=== PATIENT | male | born 1945 | race African-American/Black ===

== ENCOUNTER 2017-07-23 12:18 | Inpatient (IN) | payer MEDICARE, OTHER ==
[~2017-07-23] VITALS: Ht 182.9 cm; Wt 60.0 kg
[2017-07-23 12:50] VITALS: BP 155/87
[2017-07-23 13:05] LABS: BASO # 0.1 x10^3/uL (0.0-0.2); BASO % 1 % (0-3); EOS % 1 % (0-3); HEMATOCRIT 30.1 % (39.0-53.0); HEMOGLOBIN 10.3 g/dL (13.0-17.5); LYMPH # 1.2 x10^3/uL (1.0-4.8); LYMPH % 25 % (24-48); MEAN CORPUSCULAR HEMOGLOBIN 32 pg (25-35); MEAN CORPUSCULAR HGB CONC 34 g/dL (31-37); MEAN CORPUSCULAR VOLUME 94 fL (79-100); MONO # 0.4 x10^3/uL (0.0-1.1); MONO % 8 % (0-9); NEUT # 3.1 x10^3uL (1.8-7.7); NEUT % 65 % (31-73); PLATELET COUNT 226 x10^3/uL (140-400); RED BLOOD COUNT 3.21 x10^6/uL (4.30-5.70); RED CELL DISTRIBUTION WIDTH 15.5 % (11.5-14.5); WHITE BLOOD COUNT 4.8 x10^3/uL (4.0-11.0)
[2017-07-23 13:18] LABS: ALBUMIN/GLOBULIN RATIO 1.1 (1.0-1.7); CALCIUM 9.4 mg/dL (8.5-10.1); CREATININE 1.5 mg/dL (0.7-1.3); GFR 56.1; POTASSIUM 4.2 mmol/L (3.5-5.1); TOTAL BILIRUBIN 0.6 mg/dL (0.2-1.0); TOTAL PROTEIN 7.7 g/dL (6.4-8.2)
[2017-07-23] MEDS ORDERED: IBUP800T19 PO (13:40)
[2017-07-23] MEDS: PANTOPRAZOLE IV 40 MG VIAL. IVP SCH (14:03)
[2017-07-23] MEDS: IV NORMAL SALINE 1,000ML 1,000 ML IV SCH ×2 (14:04→22:30)
--- NOTE | 2017-07-23 14:08 | RAD ---
Examination: CT of the abdomen pelvis without contrast HISTORY: History of rectal bleeding COMPARISON: None available Technique: Axial CT images of the abdomen pelvis were performed with oral contrast. Coronal and sagittal reformats are performed Exposure: One or more of the following individualized dose reduction techniques were utilized for this examination: 1. Automated exposure control 2. Adjustment of the mA and/or kV according to patient size 3. Use of iterative reconstruction technique FINDINGS: Emphysematous changes identified in the bibasilar lungs. No evidence of free air identified in the abdomen. The visualized noncontrasted liver, adrenals grossly appears unremarkable. There is a cystic structure identified in the spleen measuring 1.6 cm. The stomach is mildly distended with contrast. The visualized pancreas grossly appears unremarkable. The gallbladder is mildly distended. The small bowel is nondilated. Visualized appendix grossly appears unremarkable. Feces and gas noted in the colon. Evaluation of the solid organs is limited lack of IV contrast. No evidence of intrarenal collecting system calculi or hydronephrosis. The urinary bladder is moderately distended. There is mild diffuse thickening of the wall of the urinary bladder with indentation septated appearance of the urinary bladder inferiorly, best visualized on series 5 image #53. Moderate aortic atherosclerosis. Moderate degenerative changes identified at L4-L5 vertebral level. Impression: 1. Mild diffuse thickening of the urinary bladder wall with indentation septated appearance of the urinary bladder inferiorly, best visualized on series 5 image #53. Could be cystitis or underlying mucosal pathology such as neoplasm. Cystoscopic evaluation is recommended. 2. A 1.6 cm hypodensity identified in the spleen, nonspecific. Electronically signed by: Kartik Vernon MD (07/23/2017 2:05 PM) [id number]
--- NOTE | 2017-07-23 16:23 | EKG ---
[address] [address] Test Date: 2017-07-23 Test Time: 16:18:43 Pat Name: MELQUIADES WILL Department: Room: 122 A Gender: M Spacer Type Bar And Segment: : 1945 Requested By: JOAN MCCARTY Order Number: [id number] Reading MD: Gregory Torrez MD Measurements Intervals [place] Rate: 64 P: 70 ME: 194 QRS: 70 QRSD: 72 T: 76 QT: 420 QTc: 438 Interpretive Statements SINUS RHYTHM Electronically Signed On 08-06-2017 11:28:43 CDT by Gregory Torrez MD
[2017-07-23 19:09] VITALS: BP 107/63
[2017-07-23 22:07] LABS: BILIRUBIN,URINE NEG (NEG); CLARITY,URINE HAZY; COLOR,URINE YELLOW; GLUCOSE,URINE NEG (NEG); NITRITE,URINE NEG (NEG); UROBILINOGEN,URINE 0.2 mg/dL (0.2 mg/dL)
[2017-07-23 22:08] LABS: BACTERIA,URINE 0 /HPF (0-FEW); SQUAMOUS EPITHELIAL CELL,UR MANY /LPF
[2017-07-23 22:09] VITALS: BP 112/66
[2017-07-23 22:09] LABS: HYALINE CASTS, URINE FEW /HPF
[2017-07-24 05:17] VITALS: BP 129/61
[2017-07-24 06:37] LABS: BASO % 1 % (0-3); EOS % 1 % (0-3); HEMATOCRIT 25.2 % (39.0-53.0); HEMOGLOBIN 8.9 g/dL (13.0-17.5); LYMPH % 31 % (24-48); MEAN CORPUSCULAR HEMOGLOBIN 33 pg (25-35); MEAN CORPUSCULAR HGB CONC 35 g/dL (31-37); MEAN CORPUSCULAR VOLUME 94 fL (79-100); MONO # 0.3 x10^3/uL (0.0-1.1); MONO % 9 % (0-9); NEUT # 1.8 x10^3uL (1.8-7.7); NEUT % 58 % (31-73); PLATELET COUNT 177 x10^3/uL (140-400); RED BLOOD COUNT 2.69 x10^6/uL (4.30-5.70); RED CELL DISTRIBUTION WIDTH 15.4 % (11.5-14.5); WHITE BLOOD COUNT 3.2 x10^3/uL (4.0-11.0)
[2017-07-24 06:52] LABS: CALCIUM 8.2 mg/dL (8.5-10.1); CREATININE 1.4 mg/dL (0.7-1.3); GFR 60.8
[2017-07-24] MEDS: PANTOPRAZOLE IV 40 MG VIAL. IVP SCH (07:22)
[2017-07-24] MEDS: IV NORMAL SALINE 1,000ML 1,000 ML IV SCH ×2 (07:29→18:34)
[2017-07-24 09:12] LABS: FECAL OB PT POSITIVE (NEG)
[2017-07-24 11:19] VITALS: BP 135/68
[2017-07-24] MEDS ORDERED: levoFLOXacin 500 MG TABLET PO ONE (13:30)
[2017-07-24 15:41] VITALS: BP_SYST 114; BP_SYST 125; BP_DIAS 61; BP_DIAS 64
[2017-07-24] MEDS: SUCRALFATE 1 GM TABLET. PO SCH ×2 (16:55→20:45)
[2017-07-24 19:17] VITALS: BP 112/61
[2017-07-24 23:24] VITALS: BP 125/65
--- NOTE | 2017-07-25 00:10 | PN ---
DATE: SUBJECTIVE: A 71-year-old male who came in with acute GI bleed. He was admitted from the office because of his GI bleed, general orthostasis and low blood pressure. He is doing a little bit better today. The patient was started on some Flomax, might have cystitis. Urine culture is pending. The patient's hemoglobin has dropped down from 10 down to 8.9, although with fluids, his blood pressure is back up to 125/61 and pulse of 63, afebrile. OBJECTIVE: The patient is alert and oriented. Lungs Clear. CV exam stable. Abdomen is soft, diffuse tenderness noted primarily in the epigastric area. The patient had been on some nonsteroidals, probably related to his problem of GI bleed. Otherwise, he is feeling much better. Hemoglobin as stated above. PLAN: We will continue on IV Protonix, Carafate, monitor, and probably get an EGD as an outpatient. JOAN MCCARTY MD DR: GIORGI/sarkis JOB#: [id number] / [id number]
[2017-07-25] MEDS: IV NORMAL SALINE 1,000ML 1,000 ML IV SCH (04:40)
[2017-07-25 06:22] LABS: BASO % 1 % (0-3); EOS % 1 % (0-3); HEMATOCRIT 25.7 % (39.0-53.0); HEMOGLOBIN 8.9 g/dL (13.0-17.5); LYMPH # 0.9 x10^3/uL (1.0-4.8); LYMPH % 30 % (24-48); MEAN CORPUSCULAR HEMOGLOBIN 32 pg (25-35); MEAN CORPUSCULAR HGB CONC 35 g/dL (31-37); MEAN CORPUSCULAR VOLUME 94 fL (79-100); MONO # 0.3 x10^3/uL (0.0-1.1); MONO % 10 % (0-9); NEUT # 1.8 x10^3uL (1.8-7.7); NEUT % 59 % (31-73); PLATELET COUNT 185 x10^3/uL (140-400); RED BLOOD COUNT 2.73 x10^6/uL (4.30-5.70); RED CELL DISTRIBUTION WIDTH 15.3 % (11.5-14.5); WHITE BLOOD COUNT 3.1 x10^3/uL (4.0-11.0)
[2017-07-25 06:25] LABS: CALCIUM 8.4 mg/dL (8.5-10.1); CREATININE 1.4 mg/dL (0.7-1.3); GFR 60.8
[2017-07-25 07:00] VITALS: BP 135/72
[2017-07-25] MEDS: SUCRALFATE 1 GM TABLET. PO SCH ×2 (07:36→11:48)
[2017-07-25] MEDS: PANTOPRAZOLE IV 40 MG VIAL. IVP SCH (07:37)
[2017-07-25] MEDS ORDERED: PANT40TA3 PO (11:06)
[2017-07-25] MEDS ORDERED: TRAM50TA PO (11:06)
[2017-07-25] MEDS ORDERED: SUCR1TAB35 PO (11:06)
[2017-07-25] MEDS ORDERED: FERR325T14 PO (11:08)
--- NOTE | 2017-08-08 09:54 | DS ---
DATE OF DISCHARGE: 07/25/2017 HOSPITAL COURSE: The patient was admitted from the office with an acute GI bleed, general orthostasis, low blood pressure. The patient was taken off some of his medication and placed on Protonix and Carafate. He made excellent progress during the rest of his hospitalization. Hemoglobin stabilized at 8.9. The patient had no complications from this hospitalization. The patient was discharged home. Follow up as an outpatient. IMPRESSION: Acute gastrointestinal bleed, bladder wall thickening, iron-deficiency anemia secondary to bleed, CKD 2. DISCHARGE PLAN: The patient will be discharged home on a regular diet, decreased activity, see MRAD and follow up accordingly. He will be set up with a GI doctor for further evaluation. JOAN MCCARTY MD DR: GIORGI/sarkis JOB#: [id number] / [id number]
== END 2017-07-25 12:30 | disposition home or self-care (01) | DRG 378 ==
LOC: 1 SOUTH 12:19
PROVIDERS: ADMIT Family Medicine; ATTEND Family Medicine
DX: K92.2 Gastrointestinal hemorrhage, unspecified (principal); E44.1 Mild protein-calorie malnutrition; R64 Cachexia; Z68.1 Body mass index [BMI] 19.9 or less, adult; I95.9 Hypotension, unspecified; N30.90 Cystitis, unspecified without hematuria
CPT/HCPCS: 36415; 74177; 80048; 80053; 81001; 82150; 82274; 82947; 83540; 83550; 83690; 85025; 87086; 93005; 99406; C9113; J7030

== ENCOUNTER → 2017-11-02 | Outpatient (CLI) | payer MEDICARE, OTHER ==
[~2017-11-02] MED LIST: FERR325T14 PO; IBUP800T19 PO; PANT40TA3 PO; SUCR1TAB35 PO; TRAM50TA PO
--- NOTE | 2017-11-02 15:45 | RAD ---
Examination: CT pelvis without contrast HISTORY: History of urinary tract infection, prostate irritation Comparison: 07/23/2017 TECHNIQUE: Axial CT images of the pelvis were performed without contrast. Coronal and sagittal deformities are performed Exposure: One or more of the following individualized dose reduction techniques were utilized for this examination: 1. Automated exposure control 2. Adjustment of the mA and/or kV according to patient size 3. Use of iterative reconstruction technique FINDINGS: Feces and gas noted in the colon. The urinary bladder wall is moderately thickened diffusely with the mild distention. The prostate appears mildly enlarged. Small amount of fluid identified about the prostate extending inferiorly. Moderate degenerative changes lower lumbar spine. IMPRESSION: 1. Diffuse moderate thickened appearance the urinary bladder wall again identified. Cystitis is a possibility. Underlying mucosal pathology such as neoplasm is not completely excluded. Recommend cystoscopic evaluation. The prostate is mildly enlarged small amount of fluid extending inferiorly. Examination is limited. If prostate pathology is suspected, MRI prostate may be considered for further evaluation. Electronically signed by: Kartik Vernon MD (11/02/2017 3:42 PM) [id number]
== END | disposition home or self-care (01) ==
LOC: CT 10:46
PROVIDERS: ATTEND Family Medicine
DX: N32.89 Other specified disorders of bladder (principal); Z87.440 Personal history of urinary (tract) infections
CPT/HCPCS: 72192

== ENCOUNTER 2018-09-22 13:48 | Emergency (ER) | payer MEDICARE, OTHER ==
[~2018-09-22] VITALS: Ht 182.9 cm; Wt 67.6 kg
[2018-09-22 14:05] VITALS: BP 157/84
[2018-09-22] MEDS ORDERED: HYDR25TA PO (14:21)
[2018-09-22] MEDS ORDERED: PRED50TA PO (14:21)
[2018-09-22] MEDS ORDERED: FAMO-63 PO (14:21)
--- NOTE | 2018-09-22 14:21 | PHYS DOC ---
Past History Past Medical History: Anemia, Hypertension, Other Additional Past Medical Histor: dysfunctional bladder, requiring self- catheterization Smoking: Cigarettes, Less than 1pk/day Alcohol Use: Occasionally Drug Use: None Adult General Chief Complaint Chief Complaint: SKIN PROBLEM HPI HPI Patient is a 72-year-old male presents with diffuse upper body itchy rash that has been present for the past 2-3 weeks. He saw his primary care physician for this last week was given a shot which worked for 2-3 days but the rash came back along with the itching. No [id number] or home medicine has been taken. No difficulty breathing. No bruising. No fever. Symptoms are moderate in intensit y.[] Review of Systems Review of Systems Constitutional: Denies fever or chills [] Eyes: Denies change in visual acuity, redness, or eye pain [] HENT: Denies nasal congestion or sore throat [] Respiratory: Denies cough or shortness of breath [] Cardiovascular: No chest pain or palpitations[] GI: Denies abdominal pain, nausea, vomiting, bloody stools or diarrhea [] : Denies dysuria or hematuria [] Musculoskeletal: Denies back pain or joint pain [] Integument: See history of present illness[] Neurologic: Denies headache, focal weakness or sensory changes [] Endocrine: Denies polyuria or polydipsia [] All other systems were reviewed and found to be within normal limits, except as documented in this note. Allergies Allergies Allergies Coded Allergies Type Severity Reaction Last Updated Verified Sulfa (Sulfonamide Antibiotics) Allergy Intermediate 07/24/17 Yes Physical Exam Physical Exam Constitutional: Well developed, well nourished, no acute distress, non-toxic appearance. [] HENT: Normocephalic, atraumatic, bilateral external ears normal, oropharynx moist, no oral exudates, nose normal. [] Eyes: PERRLA, EOMI, conjunctiva normal, no discharge. [] Neck: Normal range of motion, no tenderness, supple, no stridor. [] Cardiovascular:Heart rate regular rhythm, no murmur [] Lungs & Thorax: Bilateral breath sounds clear to auscultation [] Abdomen: Bowel sounds normal, soft, no tenderness, no masses, no pulsatile masses. [] Skin: Warm, dry, no erythema, scattered papules on bilateral upper extremities. No pustules. No axillary lymphadenopathy. No skin sloughing. No petechiae. No excoriations.. [] Back: No tenderness, no CVA tenderness. [] Extremities: No tenderness, no cyanosis, no clubbing, ROM intact, no edema. [] Neurologic: Alert and oriented X 3, normal motor function, normal sensory function, no focal deficits noted. [] Psychologic: Affect normal, judgement normal, mood normal. [] EKG EKG [] Radiology/Procedures Radiology/Procedures [] Course & Med Decision Making Course & Med Decision Making Pertinent Labs and Imaging studies reviewed. (See chart for details) Medical decision making and ED course: Patient with a rash from an unknown trigger. Patient denies having changed any soaps, lotions, detergents, skin creams, nor other identifiable triggers. Patient is not in anaphylaxis. No evidence of Wilson-Gian syndrome, staph scalded skin syndrome, nor toxic epidermal necrolysis. We will treat with oral outpatient medicines. Plan with lolita garcia who voiced understanding. All questions were answered. He was discharged in improved condition.[] Dragon Disclaimer Dragon Disclaimer This electronic medical record was generated, in whole or in part, using a voice recognition dictation system. Departure Departure: Impression: Primary Impression: Rash and nonspecific skin eruption Disposition: 01 HOME, SELF-CARE Condition: IMPROVED Referrals: JOAN MCCARTY MD (PCP) Follow-up in 2 days Patient Instructions: Rash Additional Instructions: Follow-up with your regular doctor in 2 days. Return to the ER if difficulty breathing, fever of more than 101�, or any other concerns. Scripts Prednisone (PREDNISONE) 50 Mg Tablet 1 TAB PO DAILY for INFLAMMATION, #5 TAB Prov: MARCO CHATTERJEE DO 09/22/18 Famotidine (PEPCID) 20 Mg Tablet 1 TAB PO BID for allergic reaction, #20 TAB 0 Refills Prov: MARCO CHATTERJEE DO 09/22/18 Hydroxyzine Hcl (HYDROXYZINE HCL) 25 Mg Tablet 1 TAB PO TID for allergic reaction, #30 TAB Prov: MARCO CHATTERJEE DO 09/22/18 MARCO CHATTERJEE DO Sep 22, 2018 14:21
== END 2018-09-22 14:32 | disposition home or self-care (01) ==
LOC: ER 13:48
DX: R21 Rash and other nonspecific skin eruption (principal); L29.9 Pruritus, unspecified; I10 Essential (primary) hypertension; F17.210 Nicotine dependence, cigarettes, uncomplicated; Z86.2 Personal history of diseases of the blood and blood-forming organs and certain disorders involving the immune mechanism; Z88.2 Allergy status to sulfonamides
CPT/HCPCS: 99283

== ENCOUNTER → 2018-12-29 | Outpatient (CLI) | payer MEDICARE, OTHER ==
[~2018-12-29] MED LIST changes: +FAMO-63 PO; +HYDR25TA PO; +PRED50TA PO; +cefTRIAXone IM 1 GM VIAL IM ONE
== END | disposition home or self-care (01) ==
LOC: ER 13:51
PROVIDERS: ATTEND Family Medicine
DX: N39.0 Urinary tract infection, site not specified (principal); R82.79 Other abnormal findings on microbiological examination of urine; I10 Essential (primary) hypertension; F17.210 Nicotine dependence, cigarettes, uncomplicated
CPT/HCPCS: 96372; J0696